=== PATIENT | male | born 2000 | race Caucasian/White ===

== ENCOUNTER 2021-10-13 15:01 | Emergency (ER) | payer BC, SELFPAY ==
[2021-10-13 15:14] VITALS: BP 131/84; PULSE 84; RESP 18; TEMP 36.3; O2SAT 99
--- NOTE | 2021-10-13 15:28 | ED.GENADULT ---
HPI - General Adult General Chief complaint: Extremity Injury, Lower Stated complaint: rt knee and ankle pain History of Present Illness HPI narrative: Pt is a 21 y/o CM who presents to the via pov for an evaluation of R knee and R ankle pain that has been present x1 week. He has hx of DVT. He is prescribed Xeralto by ortho although reports not following up with Ortho and has ran out of his Eliquis. He reports that he has not been taking Eliquis for 2 months. Walking increases pain. Related Data Home Medications Medication Instructions Recorded Confirmed apixaban 5 mg tablet (Eliquis) 5 mg BID 10/13/21 10/13/21 Allergies Allergy/AdvReac Type Severity Reaction Status Date / Time No Known Allergies Allergy Verified 10/13/21 15:24 Review of Systems Review of Systems: Pertinent negatives: fever, chills, sweats, change in appetite, poor p.o. intake, malaise, calf tenderness, skin color changes, rash, warmth, swelling, numbness, tingling, loss of sensation, deformity, decreased range of motion, weakness, difficulty with ambulation/coordination, nausea, vomiting, lymphadenopathy, shortness of breath, chest pain, heart palpitations, and heart murmur. PMFSH Comments I have reviewed and agree with the patient's past medical, surgical, social, and family hx as documented by the RN. There is no relevant family history pertinent to the presenting complaint. Exam Narrative: GENERAL: Well-appearing, well-nourished, and in no acute distress. HEAD: Normocephalic, atraumatic. NECK: Supple. No Lymphadenopathy or nuchal rigidity appreciated. CHEST: Bilateral lung espinoza are clear to auscultation. No respiratory distress. No evidence of cough or pleuritic cp upon examination. HEART: Regular rate and rhythm. No murmur, gallop, or rub heard. EXTREMITIES: No evidence of injury, decreased ROM, swelling, cyanosis, or deformity. No evidence of pain with active/passive ROM. No evidence of dislocation, ligament laxity, effusion, or pain at rest. Pulses palpable at 2+, strength 5/5, and cap refill < 3 seconds in affected extremity. DTRs normal. Ambulates with right sided limp. SKIN: Warm, dry, no rash. NEURO: No focal deficits. Alert and oriented x3. Course Course Emergency Course: The patient/guardian displays adequate decision making capability and despite a detailed discussion of alternatives, benefits, risks, and consequences refuses higher level of care to EMS transport to ER. Level of Care: Express Care Visit Transfer Transfered to: [facility] Transportation: Other (POV) Transfer rationale: R/O DVT Accepting physician: Chhaya HAYES Transfer comments: all questions answered. 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
== END 2021-10-13 15:43 | disposition short-term general hospital (02) ==
PROVIDERS: Emergency Provider Nurse Practitioner Family
DX: M25.571 Pain in right ankle and joints of right foot (principal); M25.561 Pain in right knee; Z86.718 Personal history of other venous thrombosis and embolism; Z79.01 Long term (current) use of anticoagulants; Z91.14 Patient's other noncompliance with medication regimen
CPT/HCPCS: 99212; G0463

== ENCOUNTER 2021-10-13 16:01 | Emergency (ER) | payer BC, SELFPAY ==
--- NOTE | ~2021-10-13 | XR_ITS ---
EXAM: XR knee RT min 4V DATE: 10/13/2021 17:25 HISTORY: pain X 4 days . COMPARISON: None available. FINDINGS: Partially visualized uncomplicated intramedullary ashutosh and interlocking screws. Normal legal examiner alization. No fracture or dislocation. No lytic or blastic lesion. Joint spaces and physes are mainta ined. No erosion or periosteal change. Soft tissues within normal limits. IMPRESSION: No acute osseous finding in the right knee. Reviewed, dictated and finalized at location K.
[2021-10-13 16:10] VITALS: BP 143/86; PULSE 76; RESP 14; TEMP 36.4; O2SAT 98
--- NOTE | 2021-10-13 17:03 | ED.EXTPRO ---
HPI - Extremity Problem General Chief complaint: Extremity Problem,Nontraumatic Stated complaint: right leg pain Time Seen by Provider: 10/13/21 16:15 Source: patient and old records reviewed Mode of arrival: ambulatory Limitations: no limitations History of Present Illness HPI Narrative: Patient is a 21 y/o male who presents to the ED with c/o R knee pain. Patient reports having intermittent pain in his right knee for the past 4 days. States pain is aggravated with certain activities, like walking up steps, but only occasionally. He has not tried anything for the pain. Denies any significant swelling. Denies any injury, strenuous activity. He does have history of previous DVT after orthopedic surgery last September and took Eliquis for ~6 months, but never made any more follow-up appointments and is not been on his Eliquis for the last 6 months. Unsure if he is even supposed to be taking this. Denies fever, chest pain, shortness of breath. Patient went to urgent care today and was referred here for DVT rule out. He did not have any imaging performed at . Related Data Home Medications Medication Instructions Recorded Confirmed apixaban 5 mg tablet (Eliquis) 5 mg BID 10/13/21 10/13/21 Allergies Allergy/AdvReac Type Severity Reaction Status Date / Time No Known Allergies Allergy Verified 10/13/21 15:24 Review of Systems Review of Systems: CONSTITUTIONAL: Denies fever, chills, or sweats. CARDIOVASCULAR: Denies chest pain. RESPIRATORY: Denies dyspnea. SKIN: Denies R knee swelling. MUSCULOSKELETAL: Reports R knee pain. NEUROLOGIC: Denies tingling, numbness, or weakness. All systems reviewed & are unremarkable except as noted in HPI and below PMFSH Past Medical History Medical History (Updated 10/13/21 @ 18:52 by Chhaya Dan PA-C) History of deep venous thrombosis (DVT) of distal vein of right lower extremity Surgical History Surgical History (Updated 10/13/21 @ 17:04 by Chhaya Dan PA-C) History of orthopedic surgery Social History Social History (Updated 10/13/21 @ 17:04 by Chhaya Dan PA-C) Smoking status: Current every day smoker Tobacco type: e-cigarettes/vaping Alcohol intake: current Exam Narrative: GENERAL: Well appearing, obese, non-toxic, in no acute distress. HEAD: Normocephalic, atraumatic. NECK: Supple. No adenopathy, no masses. RESPIRATORY: Airway patent, respirations nonlabored. Clear to auscultation bilaterally, no rales, rhonchi, wheezing. CARDIOVASCULAR: Regular rate and rhythm without murmurs, rubs, or gallops. Pedal pulses 2+ and equal bilaterally. MUSCULOSKELETAL: Moves all extremities. Strength/ROM intact without gross deformities or TTP. No edema. No calf tenderness. Mild point tenderness to superior R knee midline joint space. No pain with ballottement of patella. No redness or warmth to right lower extremity. Healed surgical scars to medial/lateral right ankle and lateral right distal femur. SKIN: Warm, dry, normal color. No rashes. NEURO: A&O X3. Speech clear. Cranial nerves II-XII grossly intact. Steady gait. No ataxic movements. PSYCHIATRIC: Appropriate mood and affect. Normal interaction. Course Vital Signs Vital signs: Vital Signs Temperature 97.6 F 10/13/21 16:10 Pulse Rate 76 10/13/21 16:10 Respiratory Rate 14 10/13/21 16:10 Blood Pressure 143/86 H 10/13/21 16:10 Pulse Oximetry 98 10/13/21 16:10 Oxygen Delivery Room Air 10/13/21 16:10 Temperature 97.6 F 10/13/21 16:10 Pulse Rate 76 10/13/21 16:10 Respiratory Rate 14 10/13/21 16:10 Blood Pressure 143/86 H 10/13/21 16:10 Pulse Oximetry 98 10/13/21 16:10 Oxygen Delivery Room Air 10/13/21 16:10 MDM - Extremity (Nontraumatic) MDM Narrative Medical decision making narrative: Patient with 4-day history of right knee pain, sent from urgent care to rule out DVT. Patient does have history of provoked DVT after orthopedic surgery in 2020.
== END 2021-10-13 19:00 | disposition left against medical advice (07) ==
PROVIDERS: Emergency Provider Emergency Medicine
DX: M25.561 Pain in right knee (principal)
CPT/HCPCS: 73564; 99283